=== PATIENT | female | born 1995 | race Caucasian/White ===

== ENCOUNTER 2020-08-07 05:16 | Day surgery (SDC) | payer OTHER, SELFPAY ==
[~2020-08-07] VITALS: Ht 162.6 cm; Wt 47.6 kg
[2020-08-07] MEDS ORDERED: BUPIVACAINE-MPF/EPI 0.25% 30 ML VIAL INJ ONE (07:30)
[2020-08-07] MEDS ORDERED: LACTATED RINGERS 1,000 ML IV SCH (07:55)
[2020-08-07] MEDS ORDERED: diphenhydrAMINE 50 MG/ML VIAL IVP PRN (07:55)
[2020-08-07] MEDS ORDERED: MEPERIDINE 25 MG/ML SYR IVP PRN (07:55)
[2020-08-07] MEDS ORDERED: ONDANSETRON 4 MG/2 ML VIAL IVP PRN (07:55)
[2020-08-07] MEDS ORDERED: HYDROmorphone PFS 2 MG/ML SYR ONE (08:29)
[2020-08-07] MEDS: HYDROmorphone 1 MG/ML AMP IVP PRN ×4 (08:33→09:03)
== END 2020-08-07 10:50 | disposition home or self-care (01) ==
LOC: MDS 05:16 → MMU 05:19 → MDS 10:50
PROVIDERS: ATTEND Obstetrics & Gynecology
DX: N83.202 Unspecified ovarian cyst, left side (principal); G43.909 Migraine, unspecified, not intractable, without status migrainosus; Z98.890 Other specified postprocedural states; Z90.89 Acquired absence of other organs; Z79.899 Other long term (current) drug therapy
CPT/HCPCS: 36415; 58662; 81025; 86886; 86900; 86901; 88305; J1170; J3490; U0003